=== PATIENT | male | born 1990 | race Caucasian/White ===

== ENCOUNTER 2023-06-21 18:01 | Emergency (ER) | payer MEDICAID ==
[~2023-06-21] VITALS: Ht 177.8 cm; Wt 99.8 kg
[2023-06-21 18:08] VITALS: BP 120/81; PULSE 94; RESP 20; O2SAT 96
--- NOTE | 2023-06-21 19:57 | NUR ---
SLING APPLIED TO PT R. SHOULDER. PT REFUSED SPLINT TO R ARM.
--- NOTE | 2023-06-21 20:01 | NUR ---
Patient discharged with v/s stable. Written and verbal after care instructions given and explained. Patient verbalized understanding. Police with in custody. All questions addressed prior to discharge. Advised to follow up with PMD.
== END 2023-06-21 20:01 ==
LOC: MED 18:01
DX: S52.591A Other fractures of lower end of right radius, initial encounter for closed fracture (principal); Z02.89 Encounter for other administrative examinations; Y08.89XA Assault by other specified means, initial encounter; Y93.89 Activity, other specified; Y92.89 Other specified places as the place of occurrence of the external cause; Y99.8 Other external cause status
CPT/HCPCS: 29105; 73080; 73090; 99284